=== PATIENT | female | born 1985 | race Caucasian/White ===

== ENCOUNTER 2021-04-22 08:22 | Emergency (ER) | payer OTHER ==
[~2021-04-22 08:22] MED LIST: COLACE 100MG C100 MG PO; IBUPROFEN600 MG PO; LORTAB 5-325 M1 EACH PO; PRILOSEC OTC20 MG PO; ZANTAC150 MG PO
[2021-04-22] MEDS ORDERED: ELIQUIS5 MG PO (10:47)
== END 2021-04-22 12:37 | disposition home or self-care (01) ==
LOC: ER1 08:22
DX: I82.412 Acute embolism and thrombosis of left femoral vein (principal); K21.9 Gastro-esophageal reflux disease without esophagitis
CPT/HCPCS: 85379; 90715; 93971; 99284